=== PATIENT | female | born 1970 | race Caucasian/White ===

== ENCOUNTER 2025-06-19 11:03 | Inpatient (IN) | payer OTHER ==
[~2025-06-19] VITALS: Ht 149.9 cm; Wt 87.1 kg
[2025-06-19 11:06] VITALS: O2SAT 98
[2025-06-19 12:14] LABS: BASOPHILS % 0.4 % (0.0-2.0); EOSINOPHILS % 0.6 % (0.0-5.0); HEMATOCRIT. 41.6 % (36.0-48.0); HEMOGLOBIN. 14.1 g/dL (12.0-16.0); LYMPHOCYTES % 19.6 % (20.0-50.0); MEAN PLATELET VOLUME 10.2 fl (7.4-10.4); MONOCYTES % 4.8 % (2.0-8.0); NEUTROPHILS % 74.6 % (40.0-76.0); PLATELET 256 x1000/uL (130-400); RED BLOOD CELL COUNT 4.78 mill/uL (4.2-5.4); RED CELL DISTRIBUTION WIDTH 13.1 % (11.6-14.6)
[2025-06-19 12:23] LABS: CREATININE 1.0 mg/dL (0.6-1.0); UREA NITROGEN BLOOD 10 mg/dL (9-23)
[2025-06-19 12:24] LABS: TROPONIN I HIGH SENSITIVITY 16 ng/L (3.0-34)
[2025-06-19] MEDS: METOCLOPRAMIDE HCL 10MG/2ML VIAL IV ONE (12:37)
[2025-06-19] MEDS: SODIUM CHLORIDE 0.9% 1,000 ML IV ONE (12:37)
[2025-06-19] MEDS: KETOROLAC 15MG/ML VIAL IV ONE (12:37)
[2025-06-19] MEDS ORDERED: ONDANSETRON HCL 4MG/2ML INJ IV PRN (14:00)
[2025-06-19] MEDS ORDERED: HYDROCODONE/ACETAMINOPHEN 5/325MG TABLET PO PRN (14:00)
[2025-06-19] MEDS: SODIUM CHLORIDE 0.9% 1,000 ML IV SCH (14:09)
[2025-06-19] MEDS ORDERED: NALOXONE HCL 0.4MG/ML VIAL IV PRN (14:15)
[2025-06-19] MEDS: ENOXAPARIN 40MG/0.4ML SYR SUBCUT SCH (14:15)
[2025-06-19] MEDS: PANTOPRAZOLE SODIUM 40 MG/VIAL IV SCH (14:15)
[2025-06-19 16:00] VITALS: BP 161/94; PULSE 88; RESP 20; TEMP 36.4; O2SAT 98
[2025-06-19 16:16] VITALS: BP 161/94; PULSE 88; RESP 20; TEMP 36.696
[2025-06-19] MEDS: AMLODIPINE 5MG TABLET PO SCH (16:48)
[2025-06-19] MEDS: LISINOPRIL 10MG TABLET PO SCH (16:49)
[2025-06-19] MEDS ORDERED: DEXTROSE 50% WATER 50ML SYRINGE IV PRN (17:00)
[2025-06-19] MEDS: BLOOD SUGAR DIAGNOSTIC STRIP TEST SCH (18:06)
[2025-06-19] MEDS: INSULIN LISPRO 100 UNITS/ML SUBCUT SCH (18:06)
[2025-06-19 18:56] LABS: TROPONIN I HIGH SENSITIVITY 15 ng/L (3.0-34)
[2025-06-19 20:00] VITALS: BP 144/84; PULSE 88; RESP 19; TEMP 36.6; O2SAT 97
[2025-06-19] MEDS ORDERED: ZOLPIDEM TARTRATE 5MG TABLET PO PRN (21:00)
[2025-06-20 04:00] VITALS: BP 138/88; PULSE 91; RESP 18; TEMP 36.4; O2SAT 99
[2025-06-20 08:19] VITALS: BP 137/90; PULSE 84; RESP 20; TEMP 37.1; O2SAT 98
[2025-06-20 10:31] LABS: BASOPHILS % 0.2 % (0.0-2.0); EOSINOPHILS % 1.2 % (0.0-5.0); HEMATOCRIT. 38.6 % (36.0-48.0); HEMOGLOBIN. 13.1 g/dL (12.0-16.0); LYMPHOCYTES % 20.9 % (20.0-50.0); MEAN PLATELET VOLUME 10.1 fl (7.4-10.4); MONOCYTES % 4.7 % (2.0-8.0); NEUTROPHILS % 73.0 % (40.0-76.0); PLATELET 219 x1000/uL (130-400); RED BLOOD CELL COUNT 4.46 mill/uL (4.2-5.4); RED CELL DISTRIBUTION WIDTH 13.2 % (11.6-14.6)
[2025-06-20 11:03] LABS: CREATININE 1.0 mg/dL (0.6-1.0)
[2025-06-20 11:05] LABS: UREA NITROGEN BLOOD 11.0 mg/dL (9-23)
[2025-06-20 12:00] VITALS: BP 140/100; PULSE 85; RESP 18; TEMP 37; O2SAT 97
[2025-06-20 16:50] VITALS: BP 136/71; PULSE 89; RESP 18; TEMP 36.5; O2SAT 97
[2025-06-20] MEDS: ACETAMINOPHEN 325MG TABLET PO PRN (17:15)
[2025-06-20 20:00] VITALS: BP 142/92; PULSE 90; RESP 19; TEMP 36.4; O2SAT 97
[2025-06-20] MEDS: GABAPENTIN 300MG CAPSULE PO SCH (21:44)
[2025-06-21] VITALS (7 sets, daily range): BP systolic 136–148; BP diastolic 70–89; PULSE 77–94; RESP 18–20; TEMP 36.5–37.2; O2SAT 96–98
[2025-06-21 06:41] LABS: CREATININE 1.0 mg/dL (0.6-1.0); UREA NITROGEN BLOOD 13.0 mg/dL (9-23)
[2025-06-21 09:45] LABS: BASOPHILS % 0.3 % (0.0-2.0); EOSINOPHILS % 1.6 % (0.0-5.0); HEMATOCRIT. 36.9 % (36.0-48.0); HEMOGLOBIN. 12.5 g/dL (12.0-16.0); LYMPHOCYTES % 20.7 % (20.0-50.0); MEAN PLATELET VOLUME 10.0 fl (7.4-10.4); MONOCYTES % 5.8 % (2.0-8.0); NEUTROPHILS % 71.6 % (40.0-76.0); PLATELET 205 x1000/uL (130-400); RED BLOOD CELL COUNT 4.25 mill/uL (4.2-5.4); RED CELL DISTRIBUTION WIDTH 12.9 % (11.6-14.6)
[2025-06-21] MEDS ORDERED: GABA-1180 PO (11:53)
[2025-06-21] MEDS ORDERED: LISI10TA26 PO (11:53)
[2025-06-21] MEDS ORDERED: LIP40 MT (11:53)
[2025-06-21] MEDS ORDERED: AMLO5TAB88 PO (11:53)
[2025-06-21 12:59] LABS: CLARITY URINE CLEAR (CLEAR); COLOR URINE YELLOW (YELLOW); GLUCOSE URINE NEGATIVE (NEGATIVE); KETONES URINE NEGATIVE (NEGATIVE); LEUKOCYTE ESTERASE URINE NEGATIVE (NEGATIVE); NITRITE URINE NEGATIVE (NEGATIVE); OCCULT BLOOD URINE TRACE (NEGATIVE); PH URINE 7.0 (4.5-8.0); PROTEIN URINE 2+ (NEGATIVE); SPECIFIC GRAVITY URINE 1.010 (1.005-1.030); UROBILINOGEN URINE 0.2 E.U./dL (0.2-1.0)
[2025-06-21 13:41] LABS: *AMPHETAMINES SCREEN URINE NEGATIVE (NEGATIVE); *BARBITURATES SCREEN URINE NEGATIVE (NEGATIVE); *BENZODIAZEPINES SCREEN URINE NEGATIVE (NEGATIVE); *COCAINE SCREEN URINE NEGATIVE (NEGATIVE); CANNABINOID URINE SCREEN NEGATIVE (NEGATIVE); METHADONE URINE SCREEN NEGATIVE (NEGATIVE); OPIATES URINE SCREEN NEGATIVE (NEGATIVE); PHENCYCLIDINE URINE SCREEN NEGATIVE (NEGATIVE)
[2025-06-21 13:42] LABS: ECSTASY MDMA SCREEN URINE NEGATIVE (NEGATIVE)
[2025-06-21 13:52] LABS: BACTERIA URINE NONE SEEN; RBC URINE NONE SEEN /hpf (0-2); SQUAMOUS EPITHELIAL CELL URINE RARE /lpf (RARE/1+); WBC URINE 0-2 /hpf (0-2)
[2025-06-22] VITALS: BP 142/85; PULSE 87; RESP 18; TEMP 37.2; O2SAT 97
[2025-06-22 04:00] VITALS: BP 134/83; PULSE 78; RESP 18; TEMP 36.9; O2SAT 97
[2025-06-22 07:34] LABS: BASOPHILS % 0.3 % (0.0-2.0); EOSINOPHILS % 2.3 % (0.0-5.0); HEMATOCRIT. 37.9 % (36.0-48.0); HEMOGLOBIN. 12.8 g/dL (12.0-16.0); LYMPHOCYTES % 27.1 % (20.0-50.0); MEAN PLATELET VOLUME 10.0 fl (7.4-10.4); MONOCYTES % 7.4 % (2.0-8.0); NEUTROPHILS % 62.9 % (40.0-76.0); PLATELET 222 x1000/uL (130-400); RED BLOOD CELL COUNT 4.36 mill/uL (4.2-5.4); RED CELL DISTRIBUTION WIDTH 13.1 % (11.6-14.6)
[2025-06-22 07:37] LABS: CREATININE 1.0 mg/dL (0.6-1.0)
[2025-06-22 07:38] LABS: UREA NITROGEN BLOOD 12.0 mg/dL (9-23)
[2025-06-22 08:00] VITALS: BP 149/93; PULSE 72; RESP 18; TEMP 36.8; O2SAT 98
[2025-06-22 12:00] VITALS: BP 123/69; PULSE 78; RESP 18; TEMP 36.6; O2SAT 100
[2025-06-22 16:00] VITALS: BP 164/86; PULSE 89; RESP 20; TEMP 37; O2SAT 100
[2025-06-22 20:00] VITALS: BP 138/89; PULSE 76; RESP 19; TEMP 36.3; O2SAT 99
[2025-06-23] VITALS: BP 135/86; PULSE 91; RESP 17; TEMP 36.6; O2SAT 96
[2025-06-23 04:00] VITALS: BP 159/93; PULSE 74; RESP 20; TEMP 36.8; O2SAT 98
[2025-06-23 08:00] VITALS: BP 150/91; PULSE 69; RESP 20; TEMP 36.2; O2SAT 97
[2025-06-23 12:00] VITALS: BP 137/84; PULSE 82; RESP 18; TEMP 36.6; O2SAT 99
[2025-06-23] MEDS: MAGNESIUM/ALUMINUM HYDROXIDE/SIMETHICONE 30ML UDC PO PRN (15:21)
[2025-06-23 16:00] VITALS: BP 140/86; PULSE 79; RESP 20; TEMP 36.6; O2SAT 97
[2025-06-23 20:00] VITALS: BP 164/92; PULSE 91; RESP 19; TEMP 36.9; O2SAT 97
[2025-06-23] MEDS: CLONIDINE 0.1MG TABLET PO PRN (21:38)
[2025-06-24] VITALS (7 sets, daily range): BP systolic 128–154; BP diastolic 77–91; PULSE 74–98; RESP 18–19; TEMP 36.3–36.8; O2SAT 96–99
[2025-06-25] VITALS (7 sets, daily range): BP systolic 141–155; BP diastolic 85–118; PULSE 67–110; RESP 18–19; TEMP 35.9–36.8; O2SAT 97–99
[2025-06-26] VITALS: BP 121/78; PULSE 95; RESP 18; TEMP 36.3; O2SAT 98
[2025-06-26 04:00] VITALS: BP 127/90; PULSE 90; RESP 18; TEMP 36.4; O2SAT 96
[2025-06-26 08:00] VITALS: BP 143/92; PULSE 80; RESP 18; TEMP 36.8; O2SAT 97
[2025-06-26 12:00] VITALS: BP 122/81; PULSE 93; RESP 18; TEMP 36.7; O2SAT 97
[2025-06-26 16:00] VITALS: PULSE 90; RESP 18; TEMP 36.7; O2SAT 97
[2025-06-26 20:00] VITALS: BP 130/82; PULSE 79; RESP 18; TEMP 36.8; O2SAT 96
[2025-06-27] VITALS: BP 130/93; PULSE 17; PULSE 83; RESP 17; TEMP 36.4; O2SAT 97
[2025-06-27 04:00] VITALS: BP 143/93; PULSE 78; RESP 16; TEMP 36.7; O2SAT 97
[2025-06-27 08:00] VITALS: PULSE 97; RESP 20; TEMP 37.1; O2SAT 97
[2025-06-27 12:00] VITALS: PULSE 97; RESP 20; TEMP 37.1; O2SAT 97
[2025-06-27 16:00] VITALS: PULSE 97; RESP 20; TEMP 37.1; O2SAT 97
[2025-06-27 20:00] VITALS: BP 123/79; PULSE 80; RESP 20; TEMP 36.7; O2SAT 96
[2025-06-28] VITALS (7 sets, daily range): BP systolic 120–160; BP diastolic 72–100; PULSE 80–120; RESP 18–20; TEMP 36.4–37; O2SAT 96–98
[2025-06-29 04:00] VITALS: BP 128/79; PULSE 85; RESP 18; TEMP 36.5; O2SAT 97
[2025-06-29 08:00] VITALS: BP 128/90; PULSE 77; RESP 19; TEMP 36.7; O2SAT 99
[2025-06-29] MEDS: ENOXAPARIN 40MG/0.4ML SYR SUBCUT SCH (09:03)
[2025-06-29 12:00] VITALS: BP 122/84; PULSE 75; RESP 19; TEMP 36.7; O2SAT 99
[2025-06-29 16:00] VITALS: BP 120/76; PULSE 74; RESP 18; TEMP 36.8; O2SAT 99
[2025-06-29 20:00] VITALS: BP 121/90; PULSE 100; RESP 18; TEMP 36.7; O2SAT 96
[2025-06-30] VITALS: BP 111/78; PULSE 96; RESP 18; TEMP 36.7; O2SAT 97
[2025-06-30 04:00] VITALS: BP 103/73; PULSE 85; RESP 18; TEMP 36.4; O2SAT 97
[2025-07-01 04:00] VITALS: BP 120/79; PULSE 84; RESP 18; TEMP 36.3; O2SAT 96
[2025-07-01 08:00] VITALS: BP 130/81; PULSE 92; RESP 18; TEMP 36.6; O2SAT 98
[2025-07-01 12:00] VITALS: BP 136/80; PULSE 88; RESP 19; TEMP 36.7; O2SAT 98
[2025-07-01 16:00] VITALS: BP 139/79; PULSE 88; RESP 19; TEMP 36.7; O2SAT 98
[2025-07-01 20:00] VITALS: BP 124/81; PULSE 85; RESP 18; TEMP 35.3; O2SAT 96
[2025-07-02] VITALS: BP 117/75; PULSE 82; RESP 18; TEMP 36.3; O2SAT 97
[2025-07-02 04:00] VITALS: BP 141/90; PULSE 77; RESP 18; TEMP 36.3; O2SAT 95
[2025-07-02 08:00] VITALS: BP 128/79; PULSE 79; RESP 18; TEMP 36.5; O2SAT 99
[2025-07-02 12:00] VITALS: BP 112/77; PULSE 94; RESP 18; TEMP 36.4; O2SAT 98
[2025-07-02 16:00] VITALS: BP 121/79; PULSE 92; RESP 18; TEMP 36.8; O2SAT 95
[2025-07-02 20:00] VITALS: BP 107/75; PULSE 102; RESP 18; TEMP 36.3; O2SAT 96
[2025-07-03] VITALS: BP 112/64; PULSE 87; RESP 18; TEMP 36.4; O2SAT 97
[2025-07-03 04:00] VITALS: BP 135/83; PULSE 84; RESP 18; TEMP 36.4; O2SAT 98
[2025-07-03 08:00] VITALS: BP 103/71; PULSE 101; RESP 18; TEMP 36.4; O2SAT 97
[2025-07-03 12:00] VITALS: BP 106/70; PULSE 99; RESP 17; TEMP 36.6; O2SAT 98
[2025-07-03 16:00] VITALS: BP 109/71; PULSE 96; RESP 17; TEMP 36.6; O2SAT 98
[2025-07-03 20:00] VITALS: BP 120/86; PULSE 103; RESP 18; TEMP 36.7; O2SAT 96
[2025-07-04] VITALS: BP 124/79; PULSE 91; RESP 18; TEMP 36.5; O2SAT 97
[2025-07-04] MEDS ORDERED: CLONIDINE 0.1MG TABLET PO PRN (02:00)
[2025-07-04] MEDS ORDERED: AMLODIPINE 10MG TABLET PO ONE (02:00)
[2025-07-04] MEDS ORDERED: HYDROCODONE/ACETAMINOPHEN 5/325MG TABLET PO PRN (02:00)
[2025-07-04] MEDS ORDERED: FLUCONAZOLE 150MG TABLET PO ONE (02:00)
[2025-07-04] MEDS ORDERED: LOSARTAN 50 MG TABLET PO ONE (02:00)
[2025-07-04 04:00] VITALS: BP 125/79; PULSE 81; RESP 18; TEMP 36.4; O2SAT 97
[2025-07-04 08:00] VITALS: BP 137/89; PULSE 86; RESP 18; TEMP 36.4; O2SAT 98
[2025-07-04 12:00] VITALS: BP 129/85; PULSE 93; RESP 18; TEMP 36.4; O2SAT 98
[2025-07-04 16:00] VITALS: BP 123/78; PULSE 102; RESP 16; TEMP 36.1; O2SAT 97
[2025-07-04 20:00] VITALS: BP 110/79; PULSE 101; RESP 18; TEMP 36.6; O2SAT 98
[2025-07-05] VITALS: BP 119/71; PULSE 90; RESP 18; TEMP 36.4; O2SAT 97
[2025-07-05 04:00] VITALS: BP 110/74; PULSE 78; RESP 18; TEMP 36.3; O2SAT 96
[2025-07-05 08:00] VITALS: BP 133/81; PULSE 85; RESP 18; TEMP 36.3; O2SAT 98
[2025-07-05 12:00] VITALS: BP 135/81; PULSE 95; RESP 18; TEMP 36.5; O2SAT 99
[2025-07-05 16:00] VITALS: BP 124/76; PULSE 95; RESP 18; TEMP 36.4; O2SAT 98
[2025-07-05 20:00] VITALS: BP 116/76; PULSE 105; RESP 18; TEMP 36.4; O2SAT 96
[2025-07-06] VITALS: BP 103/71; PULSE 89; RESP 16; TEMP 36.7; O2SAT 98
[2025-07-06 04:00] VITALS: BP 112/78; PULSE 92; RESP 18; TEMP 36.2; O2SAT 97
[2025-07-06 08:00] VITALS: BP 137/87; PULSE 95; RESP 19; TEMP 36.6; O2SAT 99
[2025-07-06 12:00] VITALS: BP 130/86; PULSE 90; RESP 17; TEMP 36.5; O2SAT 99
[2025-07-06 16:00] VITALS: BP 129/82; PULSE 91; RESP 18; TEMP 36.7; O2SAT 97
[2025-07-06 20:00] VITALS: BP 102/77; PULSE 101; RESP 18; TEMP 36.5; O2SAT 97
[2025-07-07] VITALS (7 sets, daily range): BP systolic 110–133; BP diastolic 73–86; PULSE 76–105; RESP 18–20; TEMP 35.6–37.2; O2SAT 96–100
[2025-07-08] VITALS: BP 104/65; PULSE 97; RESP 18; TEMP 36.5; O2SAT 100
[2025-07-08 08:00] VITALS: BP 135/86; PULSE 68; RESP 18; TEMP 36.2; O2SAT 99
[2025-07-08 16:00] VITALS: BP 129/70
[2025-07-08 20:00] VITALS: BP 114/82; PULSE 63; RESP 18; TEMP 36.7; O2SAT 100
[2025-07-09] VITALS: BP 112/67; PULSE 82; RESP 19; TEMP 36.6; O2SAT 98
[2025-07-09 04:00] VITALS: BP 108/71; PULSE 89; RESP 18; TEMP 36.6; O2SAT 99
[2025-07-09 08:00] VITALS: BP 121/80; PULSE 85; RESP 18; TEMP 36.4; O2SAT 98
[2025-07-09 12:00] VITALS: BP 116/77; PULSE 88; RESP 17; TEMP 36.4; O2SAT 99
[2025-07-09 16:00] VITALS: BP 106/69; PULSE 88; RESP 18; TEMP 36.6; O2SAT 97
[2025-07-09 20:00] VITALS: BP 120/75; PULSE 70; RESP 18; TEMP 36.3; O2SAT 96
[2025-07-10] VITALS: BP 98/71; PULSE 91; RESP 18; TEMP 36.4; O2SAT 97
[2025-07-10 04:00] VITALS: BP_SYST 112; BP_SYST 120; BP_DIAS 75; BP_DIAS 81; PULSE 70; PULSE 91; RESP 18; TEMP 36.3; O2SAT 96
[2025-07-10 08:00] VITALS: BP 135/85; PULSE 76; RESP 17; TEMP 36.1; O2SAT 98
[2025-07-10 12:00] VITALS: BP 122/81; PULSE 90; RESP 19; TEMP 37; O2SAT 98
[2025-07-10 16:00] VITALS: BP 106/68; PULSE 104; RESP 20; TEMP 36.6; O2SAT 97
[2025-07-10 20:00] VITALS: BP 105/68; PULSE 105; RESP 18; TEMP 36.7; O2SAT 96
[2025-07-11] VITALS: BP 119/67; PULSE 92; RESP 18; TEMP 36.8; O2SAT 97
[2025-07-11 04:00] VITALS: BP 104/64; PULSE 103; RESP 18; TEMP 36.8; O2SAT 98
[2025-07-11 08:00] VITALS: BP 131/83; PULSE 81; RESP 19; TEMP 36.6; O2SAT 98
[2025-07-11 12:00] VITALS: BP 120/77; PULSE 78; RESP 16; TEMP 36.6; O2SAT 97
[2025-07-11] MEDS: ENOXAPARIN 40MG/0.4ML SYR SUBCUT SCH (14:08)
[2025-07-11 16:00] VITALS: BP 125/73; PULSE 85; RESP 19; TEMP 35.9; O2SAT 97
[2025-07-11] MEDS ORDERED: ENOXAPARIN 40MG/0.4ML SYR SUBCUT SCH (18:00)
[2025-07-11 20:00] VITALS: BP 105/78; PULSE 19; RESP 19; TEMP 36.7; O2SAT 98
[2025-07-12] VITALS: BP 124/80; PULSE 99; RESP 19; TEMP 36.6; O2SAT 99
[2025-07-12 04:00] VITALS: BP 102/73; PULSE 73; RESP 18; TEMP 36.3; O2SAT 99
[2025-07-12 08:00] VITALS: BP 123/83; PULSE 75; RESP 17; TEMP 35.9; O2SAT 100
[2025-07-12 12:00] VITALS: BP 127/79; PULSE 81; RESP 20; TEMP 36.4; O2SAT 98
[2025-07-12 16:00] VITALS: BP 130/74; PULSE 80; RESP 19; TEMP 36.5; O2SAT 100
[2025-07-12 20:00] VITALS: BP 119/77; PULSE 92; RESP 18; TEMP 36.7; O2SAT 100
[2025-07-13] VITALS (8 sets, daily range): BP systolic 106–127; BP diastolic 56–91; PULSE 73–98; RESP 17–19; TEMP 35.8–36.7; O2SAT 96–100
[2025-07-13] MEDS: ENOXAPARIN 30MG/0.3ML SYR SUBCUT SCH (22:14)
[2025-07-14] VITALS: BP 122/81; PULSE 66; RESP 19; TEMP 36.8; O2SAT 99
[2025-07-14 04:00] VITALS: BP 129/80; PULSE 78; RESP 18; TEMP 36.3; O2SAT 98
[2025-07-14 08:00] VITALS: BP 134/86; PULSE 74; RESP 17; TEMP 36.3; O2SAT 100
[2025-07-14 12:00] VITALS: BP 123/83; PULSE 93; RESP 16; TEMP 36.6; O2SAT 99
[2025-07-14 16:00] VITALS: BP 119/76; PULSE 16; RESP 16; TEMP 36.6; O2SAT 98
[2025-07-14 20:00] VITALS: BP 119/80; PULSE 98; RESP 18; TEMP 36.1; O2SAT 97
[2025-07-15] VITALS: BP 112/76; PULSE 89; RESP 17; TEMP 36.7; O2SAT 98
[2025-07-15 04:00] VITALS: BP 123/83; PULSE 83; RESP 16; TEMP 36.3; O2SAT 99
[2025-07-15 08:00] VITALS: BP 111/65; PULSE 75; RESP 17; TEMP 36.2; O2SAT 97
[2025-07-15 12:00] VITALS: BP 114/72; PULSE 103; RESP 20; TEMP 36.7; O2SAT 97
[2025-07-15 16:00] VITALS: BP 104/69; PULSE 100; RESP 20; TEMP 36.8; O2SAT 98
[2025-07-15 20:00] VITALS: BP 125/87; PULSE 95; RESP 18; TEMP 35.9; O2SAT 96
[2025-07-16] VITALS: BP 113/77; PULSE 94; RESP 18; TEMP 36.5; O2SAT 98
[2025-07-16 04:00] VITALS: BP 108/70; PULSE 76; RESP 18; TEMP 36.4; O2SAT 96
[2025-07-16 08:00] VITALS: BP 138/89; PULSE 91; RESP 19; TEMP 36.3; O2SAT 97
[2025-07-16 12:00] VITALS: BP 106/73; PULSE 97; RESP 19; TEMP 36.7; O2SAT 97
[2025-07-16 16:00] VITALS: BP 115/76; PULSE 99; RESP 19; TEMP 36.5; O2SAT 99
[2025-07-16 20:00] VITALS: BP 120/83; PULSE 95; RESP 18; TEMP 36.4; O2SAT 98
[2025-07-17] VITALS: BP 109/82; PULSE 90; RESP 18; TEMP 36.6; O2SAT 98
[2025-07-17 04:00] VITALS: BP 104/75; PULSE 83; RESP 18; TEMP 36.5; O2SAT 98
[2025-07-17] MEDS: PANTOPRAZOLE 40MG DR TABLET PO SCH (05:52)
[2025-07-17 08:00] VITALS: BP 108/72; PULSE 80; RESP 18; TEMP 36.6; O2SAT 98
[2025-07-17 12:00] VITALS: BP 113/70; PULSE 78; RESP 18; TEMP 36.6; O2SAT 98
[2025-07-17 16:00] VITALS: BP 110/70; PULSE 79; RESP 18; TEMP 36.4; O2SAT 98
[2025-07-17 20:00] VITALS: BP 121/89; PULSE 97; RESP 17; TEMP 36.2; O2SAT 98
[2025-07-17] MEDS ORDERED: HYDROCODONE/ACETAMINOPHEN 5/325MG TABLET PO PRN (22:30)
[2025-07-17] MEDS: ACETAMINOPHEN 325MG TABLET PO PRN (22:39)
[2025-07-18] VITALS: BP 120/80; PULSE 110; RESP 19; TEMP 36.8; O2SAT 99
[2025-07-18 08:00] VITALS: BP 140/90; PULSE 81; RESP 18; TEMP 36.3; O2SAT 100
[2025-07-18 12:00] VITALS: BP 114/73; PULSE 76; RESP 18; TEMP 36.3; O2SAT 97
[2025-07-18 16:00] VITALS: BP 120/79; PULSE 97; RESP 18; TEMP 36.4; O2SAT 100
[2025-07-18 20:00] VITALS: BP 131/94; PULSE 0; RESP 18; TEMP 36.5; O2SAT 97
[2025-07-19] VITALS (7 sets, daily range): BP systolic 129–176; BP diastolic 82–103; PULSE 80–99; RESP 18; TEMP 36.2–37; O2SAT 97–100
== END 2025-07-19 20:10 | DRG 48 ==
LOC: ER 11:03 → 7WST 13:53 → EDBEDREQTM 14:15 → EDBEDREQ 14:15 → ENRESERV 14:55 → 7EST 06-24 13:33
PROVIDERS: ADMIT Internal Medicine; ATTEND Internal Medicine
DX: E11.40 Type 2 diabetes mellitus with diabetic neuropathy, unspecified (principal); I69.354 Hemiplegia and hemiparesis following cerebral infarction affecting left non-dominant side; I10 Essential (primary) hypertension; R42 Dizziness and giddiness; Z59.00 Homelessness unspecified; M79.89 Other specified soft tissue disorders; R60.0 Localized edema
CPT/HCPCS: 36415; 71045; 80048; 80305; 81003; 82962; 83036; 84443; 84484; 85025; 93005; 93970; 96361; 96374; 96375; 97110; 97112; 97162; 97166; 97530; 97535; 97542; 99285; A4606; J1650; J1815; J1885; J2470; J2765; J7030